=== PATIENT | female | born 1970 | race Caucasian/White ===

== ENCOUNTER → 2016-10-28 | Outpatient (REF) | payer BC, SELFPAY | LOC: M SFHCLERA 15:54 | PROVIDERS: ATTEND Nurse Practitioner Family | DX: N89.8 Other specified noninflammatory disorders of vagina (principal); R39.9 Unspecified symptoms and signs involving the genitourinary system ==

== ENCOUNTER → 2016-12-18 | Outpatient (REF) | payer BC | LOC: M SFHCPLAZ 14:52 | PROVIDERS: ATTEND Nurse Practitioner Family | DX: N76.0 Acute vaginitis (principal) ==

== ENCOUNTER → 2016-12-31 | Outpatient (REF) | payer BC | LOC: M SFHCPLAZ 16:57 | PROVIDERS: ATTEND Nurse Practitioner Family | DX: N76.0 Acute vaginitis (principal) ==

== ENCOUNTER 2017-03-16 09:48 | Emergency (ER) | payer BC ==
[~2017-03-16] VITALS: Ht 149.9 cm; Wt 76.2 kg
[2017-03-16 11:17] VITALS: BP 135/91
== END 2017-03-16 11:18 | disposition home or self-care (01) ==
LOC: M ED 09:48
DX: R10.2 Pelvic and perineal pain (principal); N93.9 Abnormal uterine and vaginal bleeding, unspecified

== ENCOUNTER → 2017-09-10 | Outpatient (REF) | payer BC ==
[2017-09-10 22:42] LABS: CHLAMYDIA DNA AMPLIFICATION NEGATIVE (NEGATIVE); GC DNA AMPLIFICATION NEGATIVE (NEGATIVE)
== END ==
LOC: M SFHCLERA 12:18
DX: R30.0 Dysuria (principal)
CPT/HCPCS: 87086

== ENCOUNTER → 2017-09-18 | Outpatient (REF) | payer BC | LOC: M SFHCPLAZ 13:34 | DX: N89.8 Other specified noninflammatory disorders of vagina (principal) | CPT/HCPCS: 87070 ==